=== PATIENT | female | born 1955 | race Caucasian/White ===

== ENCOUNTER → 2016-05-21 | Outpatient (CLI) | payer OTHER ==
[~2016-05-21] MED LIST: OLME1TAB PO
--- NOTE | 2016-05-21 15:41 | RAD ---
Right knee radiographs History: Right knee pain for one month. Comparison: None. Findings: AP, lateral, and oblique views of the right knee. No acute fracture or dislocation is identified. No joint effusion is seen. Minimal tricompartment degeneration is present. Impression: 1. No acute osseous abnormality identified. 2. Minimal degeneration.
== END | disposition home or self-care (01) ==
LOC: DXRADRC 15:27
PROVIDERS: ATTEND Physician Assistant
DX: M25.561 Pain in right knee (principal)
CPT/HCPCS: 73562

== ENCOUNTER 2017-02-13 19:34 | Emergency (ER) | payer OTHER ==
[~2017-02-13] VITALS: Ht 160 cm; Wt 90.3 kg
[~2017-02-13 19:34] MED LIST changes: -OLME1TAB PO; +OLME1TAB21 PO
[2017-02-13] MEDS ORDERED: DIPHTH,PERTUSS(ACELL),TET TOX 0.5 ML DISP.SYRIN. VAX IM ONE (20:00)
--- NOTE | 2017-02-13 20:18 | PHYS DOC ---
Past History Past Medical History: Cancer, Diabetes, High Cholesterol, Hypertension Additional Past Medical Histor: thyroid nodule Past Surgical History: Cancer Surgery Additional Past Surgical Histo: right radical mastectomy with breast implant. Smoking: Non-smoker Alcohol Use: None Drug Use: None Adult General Chief Complaint Chief Complaint: FOOT INJURY PAIN HPI HPI 61-year-old female presenting to the emergency department after injuring her right foot. She reports that a jar fell to the ground and she accidentally stepped on a small shard of glass on the heel of her foot after trying to preforms laminator a plantar flexed position she had pain in the distal metatarsals. She reports having pain in the distal metatarsals over the past week without any known injury. She states that her plantar flexion that occurred today made the pain worse. Her tetanus was more than 10 years ago. She denies any other injuries. Her reports that he was able to remove the shard of glass that ended up in the heel of her foot. Review of systems is negative for knee pain or hip pain. She denies chest pain or abdominal pain. All other review of systems is negative unless otherwise noted in history of present illness. ED course: 61-year-old female presenting to the emergency department after accidentally stepping on a small piece of glass shard on her heel and injuring her metatarsals. On examination the patient's right foot, it is warm and well perfused with palpable pulse. Normal in color. She second cap refill. Normal sensation and motor function of the foot. She has a 2 mm linear superficial cut on her heel from the glass shard that does not need to be repaired. No evidence of foreign body in good lighting with good hemostasis. She has mild swelling over the distal metatarsals with minimal ecchymosis. She has tenderness to palpation along the distal metatarsals. Pain is more on the dorsal aspect of the metatarsals. Ankle is nontender with normal range of motion. No other identifiable injuries on secondary survey. X-rays were obtained. Tetanus updated. The wound was cleansed. I do not believe the patient would benefit from prophylactic antibiotic therapy. I recommended good wound care, cleaning 2x per day. Review of Systems Review of Systems SEE ABOVE. Allergies Allergies Allergies Coded Allergies Type Severity Reaction Last Updated Verified No Known Drug Allergies 09/02/14 No Physical Exam Physical Exam SEE ABOVE Constitutional: Well developed, well nourished, no acute distress, non-toxic appearance. [] HENT: Normocephalic, atraumatic, bilateral external ears normal, oropharynx moist, no oral exudates, nose normal. [] Eyes: PERRLA, EOMI, conjunctiva normal, no discharge. [] Neck: Normal range of motion, no tenderness, supple, no stridor. [] Cardiovascular:Heart rate regular rhythm, no murmur [] Lungs & Thorax: Bilateral breath sounds clear to auscultation [] Abdomen: Bowel sounds normal, soft, no tenderness, no masses, no pulsatile masses. [] Skin: Warm, dry, no erythema, no rash. [] Back: No tenderness, no CVA tenderness. [] Extremities: see above Neurologic: Alert and oriented X 3, normal motor function, normal sensory function, no focal deficits noted. [] Psychologic: Affect normal, judgement normal, mood normal. [] EKG EKG [] Radiology/Procedures Radiology/Procedures []X-ray reviewed by myself shows no obvious fracture or dislocation. Course & Med Decision Making Course & Med Decision Making Pertinent Labs and Imaging studies reviewed. (See chart for details) [] Dragon Disclaimer Dragon Disclaimer This electronic medical record was generated, in whole or in part, using a voice recognition dictation system. Departure Departure: Impression: Primary Impression: Right foot injury Disposition: 01 HOME, SELF-CARE Condition: STABLE Referrals: ANDREW DOVER (PCP) Patient Instructions: Foot Sprain-Brief, RICE - Routine Care for Injuries Additional Instructions: Thank you for allowing us to participate in your care today. Followup with your primary care physician in 3 days if your symptoms do not improve. If your symptoms continue for more than 5-6 days I recommend being reexamined by her primary care physician and hospital further imaging. Call your Primary Doctor tomorrow and inform them of your visit today. If you do not have a primary care provider you can ask for a list of our primary care providers. Return to the emergency department you have any new or concerning findings. This should be evaluated by the primary care physician and any necessary consulting services for continued management within a few days after discharge. Return to emergency room if you have any new or concerning symptoms including but not limited to fever, chills, nausea, vomiting, intractable pain, any new rashes, chest pain, shortness of air, uncontrolled bleeding, difficulty breathing, and/or vision loss. MERLE HAGAN MD Feb 13, 2017 20:18
--- NOTE | 2017-02-13 20:56 | RAD ---
Right foot x-rays 3 views HISTORY: Laceration stepping on glass of the right heel and dorsal foot injury, pain and swelling FINDINGS: Dorsal foot soft tissue swelling. Dystrophic type calcifications at the anterior distal calf and at the dorsal great toe. There is no radiopaque foreign body at the heel evident. Mild dystrophic calcifications of the Achilles tendon insertion at the calcaneus. Mild chronic ossicle at the dorsal talonavicular joint. No fracture or dislocation evident. IMPRESSION: No acute osseous injury. Dorsal foot soft tissue swelling. Electronically signed by: Kulwinder Rhodes MD (02/13/2017 8:53 PM) [facility]
[2017-02-13 21:12] VITALS: BP 142/80
== END 2017-02-13 21:15 | disposition home or self-care (01) ==
LOC: ER 19:34
DX: S99.921A Unspecified injury of right foot, initial encounter (principal); I10 Essential (primary) hypertension; E78.00 Pure hypercholesterolemia, unspecified; E11.9 Type 2 diabetes mellitus without complications; W22.8XXA Striking against or struck by other objects, initial encounter; Y93.89 Activity, other specified; Y99.8 Other external cause status; Y92.89 Other specified places as the place of occurrence of the external cause
CPT/HCPCS: 73630; 90471; 90715; 99284-25

== ENCOUNTER → 2017-02-18 | Outpatient (CLI) | payer OTHER ==
[2017-02-13 21:12] VITALS: BP 142/80
--- NOTE | 2017-02-18 10:03 | RAD ---
INDICATION: LEFT FOOT PAIN COMPARISON: None. IMPRESSION: Left foot: 3 views obtained. Cortical step-off at the proximal phalanx of the fifth digit. Would correlate with point tenderness since this could be seen with a nondisplaced fracture. Degenerative changes the foot. Plantar calcaneal spur.
== END | disposition home or self-care (01) ==
LOC: PMG 09:36
PROVIDERS: ATTEND Physician Assistant
DX: M19.072 Primary osteoarthritis, left ankle and foot (principal); M77.32 Calcaneal spur, left foot
CPT/HCPCS: 73630

== ENCOUNTER 2019-09-26 02:02 | Emergency (ER) | payer OTHER ==
[~2019-09-26] VITALS: Ht 160 cm; Wt 86.4 kg
[2019-09-26] MEDS ORDERED: methylPREDNISolone SOD SUCC PF 125 MG/2 ML VIAL. IV ONE (02:15)
[2019-09-26] MEDS ORDERED: ONDANSETRON PF 4 MG/2 ML VIAL. IVP ONE (02:15)
[2019-09-26] MEDS ORDERED: diphenhydrAMINE 50 MG/ML VIAL IVP ONE (02:15)
[2019-09-26] MEDS ORDERED: FAMOTIDINE 20 MG/2 ML VIAL IVP ONE ×2 (02:15→03:00)
[2019-09-26] MEDS ORDERED: METOCLOPRAMIDE HCL 10 MG/2 ML VIAL. IVP ONE (03:00)
[2019-09-26] MEDS ORDERED: IV NORMAL SALINE 1,000ML 1,000 ML IV ONE (03:00)
--- NOTE | 2019-09-26 03:26 | PHYS DOC ---
Past History Past Medical History: Cancer, Diabetes, High Cholesterol, Hypertension, Hypothyroid Additional Past Medical Histor: thyroid nodule (ZHANNA BOYLE DO) Past Surgical History: Cancer Surgery Additional Past Surgical Histo: right radical mastectomy with breast implant. (ZHANNA BOYLE DO) Smoking: Non-smoker Alcohol Use: None Drug Use: None (ZHANNA BOYLE DO) General Adult EDM: Chief Complaint: NAUSEA/VOMITING/DIARRHEA HPI: HPI: 63-year-old female past medical history significant for hypothyroidism, hypertension, hyperlipidemia and prediabetes on metformin, presents to the ED with complaints of " I think I am constipated." Last bowel movement was 3 days ago. Reports multiple episodes of nausea and nonbloody nonbilious vomiting with severe diffuse, nonlocalized abdominal cramps. PSH right mastectomy, no abdominal surgeries. ROS: Denies associated fever, chills, sore throat, cough, chest pain, dyspnea, hematochezia, melena, hematemesis, hemoptysis, leg swelling, chest pain or pressure, dyspnea, hemoptysis, diaphoresis, headache, neck stiffness, dysuria, hematuria, diarrhea or rash. (ZHANNA BOYLE DO) Current Medications: Current Meds: Current Medications Medications (Trade) Dose Ordered Sig/Maria Start Time Stop Time Status Last Admin Dose Admin Diphenhydramine HCl (Benadryl) 50 mg 1X ONCE 09/26/19 02:15 09/26/19 02:13 DC Famotidine (Pepcid Vial) 20 mg 1X ONCE 09/26/19 03:00 09/26/19 03:01 UNV 09/26/19 03:21 20 MG Methylprednisolone Sodium Succinate (SOLU-Medrol 125MG VIAL) 125 mg 1X ONCE 09/26/19 02:15 09/26/19 02:23 DC Metoclopramide HCl (Reglan Vial) 10 mg 1X ONCE 09/26/19 03:00 09/26/19 03:01 UNV 09/26/19 03:21 10 MG Ondansetron HCl (Zofran) 8 mg 1X ONCE 09/26/19 02:15 09/26/19 02:23 DC Sodium Chloride 1,000 ml @ 1,000 mls/hr 1X ONCE 09/26/19 03:00 09/26/19 03:59 UNV 09/26/19 03:21 1,000 MLS/HR (ZHANNA BOYLE DO) Allergies: Allergies: Allergies Coded Allergies Type Severity Reaction Last Updated Verified No Known Drug Allergies 09/02/14 No (ZHANNA BOYLE DO) Physical Exam: PE: Constitutional: Well developed, uncomfortable and in pain HENT: Normocephalic, atraumatic, bilateral external ears normal, oropharynx moist, no oral exudates, nose normal. [] Eyes: EOMI, conjunctiva normal, no discharge. [] Neck: Normal range of motion, no tenderness, supple, no stridor. [] Cardiovascular:Heart rate regular rhythm, no murmur [] Lungs & Thorax: Bilateral breath sounds clear to auscultation [] Abdomen: Bowel sounds-high pitched/minimal, distended/diffuse pain Skin: Warm, dry, no erythema, no rash. [] Back: No tenderness, no CVA tenderness. [] Extremities: No tenderness, no cyanosis, no clubbing, ROM intact, no edema. [] Neurologic: Alert and oriented X 3, normal motor function, normal sensory function, no focal deficits noted. [] Psychologic: Affect normal, judgement normal, mood normal. [] (VERONAZHANNA DO) Current Patient Data: Vital Signs: Vital Signs Date Time Temp Pulse Resp B/P (MAP) Pulse Ox O2 Delivery O2 Flow Rate FiO2 09/26/19 02:29 98.2 88 16 145/89 (107) 98 Room Air (VERONAZHANNA DO) EKG: EKG: [] (ZHANNA BOYLE DO) Radiology/Procedures: Radiology/Procedures: [] (ZHANNA BOYLE DO) Course & Med Decision Making: Course & Med Decision Making Pertinent Labs and Imaging studies reviewed. (See chart for details) 63-year-old female with concern for bowel obstruction, CT pending. Pt w/no tachycardia, no leukocytosis. Labs with Cr 1.2, no lactic acidosis. Due to shift change patient was signed out to Dr. Luna. (VERONAZHANNA DO) Course & Med Decision Making Signout received from Dr. Boyle. In brief patient is a 63-year-old female presents with a chief complaint of abdominal discomfort with nausea and lack of flatus. C previous provider's note for further details. CT imaging is concerning for multiple findings. Of note patient does have findings consistent with large bowel obstruction potentially due to malignant neoplasm. Furthermore concern for potential fistula into the dome of the urinary bladder. Upon my assessment the patient is overall resting comfortably. She shows no signs of peritonitis. She shows no active vomiting in the exam room. Vital signs are stable. Did discuss the case with the [facility] as the patient is refusing transfer to [facility]. They have accepted the patient. Patient was monitored in our emergency department for several hours prior to transport. She showed no signs of clinical decompensation. Patient has been accepted by [facility]. Stable upon transfer. (SADA LUNA DO) Dragon Disclaimer: Dragdanelle Disclaimer: This electronic medical record was generated, in whole or in part, using a voice recognition dictation system. (ZHANNA BOYLE DO) Departure Departure: Impression: Primary Impression: Large bowel obstruction Disposition: XFER SHT-TRM HOSP Condition: STABLE Referrals: ANDREW DOVER (PCP) Justification of Admission: Justification of Admission: Justification of Admission Dx: Yes Comments: large bowel obstruction 2/2 mass (SADA LUNA DO) ZHANNA BOYLE DO Sep 26, 2019 03:25 SADA LUNA DO Sep 26, 2019 13:48
[2019-09-26 03:47] LABS: BASO # 0.1 x10^3/uL (0.0-0.2); BASO % 1 % (0-3); EOS % 0 % (0-3); HEMATOCRIT 39.1 % (36.0-47.0); LYMPH # 1.2 x10^3/uL (1.0-4.8); LYMPH % 16 % (24-48); MEAN CORPUSCULAR HEMOGLOBIN 29 pg (25-35); MEAN CORPUSCULAR HGB CONC 33 g/dL (31-37); MEAN CORPUSCULAR VOLUME 86 fL (79-100); MONO # 0.6 x10^3/uL (0.0-1.1); MONO % 7 % (0-9); NEUT # 5.9 x10^3uL (1.8-7.7); NEUT % 75 % (31-73); PLATELET COUNT 226 x10^3/uL (140-400); RED BLOOD COUNT 4.54 x10^6/uL (3.50-5.40); RED CELL DISTRIBUTION WIDTH 14.5 % (11.5-14.5); WHITE BLOOD COUNT 7.8 x10^3/uL (4.0-11.0)
[2019-09-26 03:49] LABS: CREATININE 1.2 mg/dL (0.6-1.0); GFR 45.7; POTASSIUM 3.5 mmol/L (3.5-5.1)
--- NOTE | 2019-09-26 03:49 | RAD ---
AP chest x-ray HISTORY: Nausea and vomiting. FINDINGS: Comparison is made to chest x-ray September 02, 2014. Cardiomegaly stable. Mediastinal silhouette is unremarkable. No pneumothorax, pulmonary opacities or pleural effusions. Bones are unremarkable. IMPRESSION: No acute process. Cardiomegaly stable. Electronically signed by: Kulwinder Rhodes MD (09/26/2019 3:46 AM) [facility]
[2019-09-26 03:55] LABS: ALBUMIN 3.3 g/dL (3.4-5.0); ALBUMIN/GLOBULIN RATIO 0.8 (1.0-1.7); TOTAL PROTEIN 7.6 g/dL (6.4-8.2)
[2019-09-26] MEDS ORDERED: CONTRAST GIVEN. MC PRN (04:00)
[2019-09-26] MEDS ORDERED: IOHEXOL 240 MG/ML 50ML VIAL. PO ONE (04:00)
[2019-09-26] MEDS ORDERED: IOHEXOL 300 MG/ML 75 ML VIAL. IV ONE (04:00)
--- NOTE | 2019-09-26 06:15 | RAD ---
CT abdomen and pelvis with contrast PQRS statement: CT scans at this facility use dose reduction including either automated exposure control, iterative reconstructions, and /or weight based radiation dosing via mA and kV modification when appropriate to reduce radiation dose to as low as reasonably achievable. Contrast: 75 mL Omnipaque 300 intravenous contrast HISTORY: Nausea, vomiting and abdominal pain and constipation. Abdomen findings: 3 mm solid nodule left lower lobe image 17. Small gallstone. There is mild right renal pelviectasis diameter 1 cm there appears be mild thickened urothelial enhancement as well as distention and enhancement of the ureter. There is a focal subcentimeter hypodensity of the right renal cortex most likely small cysts. Left kidney, adrenal glands, pancreas, spleen and liver are unremarkable. Appendix is negative. There is obstruction of the large bowel with liquid stool and air-fluid levels leading up to a malignant stricture of the sigmoid colon which has a length of at least 10 cm and probable extension to the muscular propria into the surrounding pericolonic fat, there is a linear density extending to the dome of the bladder wall is thickened no bubbles of air within the bladder along with a ill-defined 3 cm round hypodensity raising the possibility of a colovesical fistula, and metastatic tumor implant of the bladder wall or abscess. No abdominal fluid or adenopathy. Lumbar disc disease. Pelvis findings: Sigmoid diverticuli distal of the length stricture, rectum unremarkable. Upper bladder wall 3 cm round density and bubbles of air in the bladder associated with a colovesical fistula. 2 cm left posterior uterine fundus fibroid. Ovaries and bones are unremarkable. IMPRESSION: 1. 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 2. 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 There is a 3 cm round hypodensity of the dome of the bladder associated with the fistula which could be abscess or metastatic tumor implant. 3. Right renal mild pelviectasis and hydroureter with thickened urothelial enhancement may represent ascending pyelitis. 4. 3 mm solid pulmonary nodule of the left lower lobe. Consider further assessment with outpatient diagnostic CT chest imaging. Electronically signed by: Kulwinder Rhodes MD (09/26/2019 6:12 AM) [facility]
[2019-09-26] MEDS ORDERED: ONDANSETRON PF 4 MG/2 ML VIAL. IVP PRN (09:15)
[2019-09-26] MEDS ORDERED: MORPHINE SULFATE 4 MG/ML DISP.SYRIN. IV PRN (09:15)
[2019-09-26 13:55] VITALS: BP 133/73
== END 2019-09-26 15:08 | disposition short-term general hospital (02) ==
LOC: ER 02:02
DX: K56.609 Unspecified intestinal obstruction, unspecified as to partial versus complete obstruction (principal); E03.9 Hypothyroidism, unspecified; I10 Essential (primary) hypertension; E78.5 Hyperlipidemia, unspecified; E11.9 Type 2 diabetes mellitus without complications; E78.00 Pure hypercholesterolemia, unspecified
CPT/HCPCS: 36415; 71045; 74177; 80053; 82550; 83605; 83690; 84484; 85025; 96361; 96374; 96375; 99285; J2270; J2405; J2765; J3490; J7030; Q9966; Q9967

== ENCOUNTER 2020-03-19 08:13 | Emergency (ER) | payer OTHER ==
[~2020-03-19] VITALS: Ht 160 cm; Wt 83.4 kg
[2020-03-19] MEDS ORDERED: ONDANSETRON PF 4 MG/2 ML VIAL. IVP ONE (08:45)
[2020-03-19] MEDS ORDERED: IV NORMAL SALINE 1,000ML 1,000 ML IV ONE (08:45)
[2020-03-19] MEDS ORDERED: IOHEXOL 300 MG/ML 75 ML VIAL. IV ONE (09:15)
[2020-03-19] MEDS ORDERED: IOHEXOL 240 MG/ML 50ML VIAL. PO ONE (09:15)
--- NOTE | 2020-03-19 09:16 | EKG ---
[address] [address] Test Date: 2020-03-19 Test Time: 08:34:40 Pat Name: RAMONE GREGORY Department: Room: Gender: F Composition Instructor: NAZARIO : 1955 Requested By: RAFAEL CALL Order Number: [id number] Reading MD: Measurements Intervals [place] Rate: 93 P: 31 RI: 170 QRS: -19 QRSD: 82 T: 98 QT: 374 QTc: 468 Interpretive Statements SINUS RHYTHM ATRIAL PREMATURE COMPLEX(ES) LEFTWARD AXIS LVH WITH REPOLARIZATION ABNORMALITY QRS(T) CONTOUR ABNORMALITY CONSIDER ANTEROSEPTAL MYOCARDIAL DAMAGE ABNORMAL ECG RI6.02 No previous ECG available for comparison
--- NOTE | 2020-03-19 09:19 | PHYS DOC ---
Past History Past Medical History: Cancer, Diabetes, High Cholesterol, Hypertension, Hypothyroid Additional Past Medical Histor: thyroid nodule Past Surgical History: Cancer Surgery Additional Past Surgical Histo: right radical mastectomy with breast implant. Smoking: Non-smoker Alcohol Use: None Drug Use: None Adult General Chief Complaint Chief Complaint: POST-OP PROBLEM HPI HPI Patient is a 64-year-old female who presents to the emergency room complaining of decreased bowel movements, nausea, vomiting, severe fatigue. Patient states that she had a reversal of a ostomy done 1 week ago at . She states that she was having good bowel movements until Friday. She believes that she just was not drinking enough water and she has severe dehydration that is causing her s ymptoms. She states that she has some upper abdominal pain that feels like aching. She states that it is due to vomiting. She does not feel like she is able to keep anything down. She did contact her surgeon who told her to go to the emergency room. She denies any kind of fever. She states she does not have any other significant symptoms. Review of Systems Review of Systems General: Denies fever, chills, sweats, fatigue Eyes: Denies drainage, blurred vision, eye redness HENT: Denies rhinorrhea, sore throat, earache Respiratory: Denies cough, shortness of breath, wheezing Cardiac: Denies edema, palpitations, chest pain GI: Reports abdominal pain, Nausea, vomiting MSK: Denies back pain, neck pain Skin: Denies rash, jaundice Neuro: Denies headache, dizziness Psychiatric: Denies SI/HI Current Medications Current Medications Current Medications Medications (Trade) Dose Ordered Sig/Maria Start Time Stop Time Status Last Admin Dose Admin Iohexol (Omnipaque 240 Mg/ml) 30 ml 1X ONCE 03/19/20 09:15 03/19/20 09:16 Iohexol (Omnipaque 300 Mg/ml) 75 ml 1X ONCE 03/19/20 09:15 03/19/20 09:16 Ondansetron HCl (Zofran) 4 mg 1X ONCE 03/19/20 08:45 03/19/20 08:53 DC 03/19/20 08:55 4 MG Sodium Chloride 1,000 ml @ 1,000 mls/hr 1X ONCE 03/19/20 08:45 03/19/20 09:44 03/19/20 08:54 1,000 MLS/HR Allergies Allergies Allergies Coded Allergies Type Severity Reaction Last Updated Verified No Known Drug Allergies 09/02/14 No Physical Exam Physical Exam General: Awake, sleepy, NAD. Well Nourished, well hydrated. Cooperative HEENT: Atraumatic, EOMI, PERRL, airway patent, moist oral mucosa Neck: Supple, trachea midline Respiratory: CTA bilaterally, normal effort, no wheezing/crackles CV: RRR, no murmur, cap refill <2 GI: Soft, no masses, minimal epigastric tenderness, surgical midline wound is clean, dry, intact. Surgical site of prior ostomy is clean, dry, intact. No signs of drainage or erythema MSK: No obvious deformities Skin: Warm, dry Neuro: A&O x3, speech NL, sensory and motor grossly intact, no focal deficits Psych: Normal affect, normal mood, not suicidal or homicidal Current Patient Data Vital Signs Vital Signs Date Time Temp Pulse Resp B/P (MAP) Pulse Ox O2 Delivery O2 Flow Rate FiO2 03/19/20 08:13 97.9 92 22 157/86 (109) 95 Room Air EKG EKG [] Radiology/Procedures Radiology/Procedures [] Heart Score Risk Factors: Risk Factors: DM, Current or recent (<one month) smoker, HTN, HLP, family history of CAD, obesity. Risk Scores: Risk Factors: DM, Current or recent (<one month) smoker, HTN, HLP, family history of CAD, obesity. Course & Med Decision Making Course & Med Decision Making Pertinent Labs and Imaging studies reviewed. (See chart for details) Patient is a 64-year-old female who presents to the emergency room complaining o f vomiting and decreased bowel movements. She is 1 week postop from an ostomy reversal. Differential diagnosis includes ileus, bowel obstruction, infection, gastroenteritis, constipation. Patient was given fluids and nausea medication. Abdominal labs and a CT abdomen pelvis was ordered. CT shows some fluid-filled stomach and proximal small bowel. Radiology is concerned about a possible small bowel obstruction. Patient also has a 1.9 cm stone. LFTs were not able to be obtained here due to lab equipment issues. I discussed the case with the surgeon on-call who stated that we needed to call the transfer center. Call was made to the transfer center and they will accept the patient. Plan discussed with patient and all questions were answered. Dragon Disclaimer Dragon Disclaimer This electronic medical record was generated, in whole or in part, using a voice recognition dictation system. Departure Departure: Impression: Primary Impression: Small bowel obstruction Additional Impressions: Dehydration Biliary stone Disposition: 02 DC/TRF OTHER SHORT TERM HOS Condition: IMPROVED Referrals: ANDREW DOVER (PCP) Problem Qualifiers RAFAEL CALL MD Mar 19, 2020 09:19
[2020-03-19 09:43] LABS: BASO # 0.1 x10^3/uL (0.0-0.2); BASO % 0 % (0-3); EOS % 0 % (0-3); HEMATOCRIT 41.5 % (36.0-47.0); HEMOGLOBIN 13.4 g/dL (12.0-15.5); LYMPH # 0.5 x10^3/uL (1.0-4.8); LYMPH % 3 % (24-48); MEAN CORPUSCULAR HEMOGLOBIN 27 pg (25-35); MEAN CORPUSCULAR HGB CONC 32 g/dL (31-37); MEAN CORPUSCULAR VOLUME 84 fL (79-100); MONO # 0.9 x10^3/uL (0.0-1.1); MONO % 5 % (0-9); NEUT # 15.9 x10^3uL (1.8-7.7); NEUT % 92 % (31-73); PLATELET COUNT 362 x10^3/uL (140-400); RED BLOOD COUNT 4.92 x10^6/uL (3.50-5.40); RED CELL DISTRIBUTION WIDTH 15.5 % (11.5-14.5); WHITE BLOOD COUNT 17.4 x10^3/uL (4.0-11.0)
[2020-03-19 10:06] LABS: HEMOGLOBIN ISTAT 15.6 gm/dL; POTASSIUM ISTAT 3.7 mmol/L (3.5-5.0)
--- NOTE | 2020-03-19 12:21 | RAD ---
CT abdomen and pelvis with contrast: Reason for examination: Recent surgery with abdominal pain and vomiting. Decreased bowel sounds. Comparison is made to previous study dated 09/26/2019. Helical images were obtained through the abdomen and pelvis with intravenous administration of 65 cc Omnipaque 300. 42 ML of Omnipaque 240 oral contrast was given. Reconstruction was performed in sagitt al and coronal planes. Exposure: One or more of the following individualized dose reduction techniques were utilized for thi s examination: 1. Automated exposure control 2. Adjustment of the mA and/or kV according to patient size 3. Use of iterative reconstruction technique. There is some density consistent with atelectasis in the left lingula. The heart size is borderline e nlarged with no pericardial effusion. There has been previous right mastectomy with implant placement . No abnormality seen at the liver, spleen pancreas or adrenal glands. There continues to be a 1.9 cm g allstone present which now appears to be at the gallbladder neck. The abdominal aorta shows some sahil riosclerotic vascular calcification but no aneurysmal dilatation or dissection is seen. No abnormalit y seen at the inferior vena cava. The colon shows evidence of previous surgery in the sigmoid colon w ith anastomosis. There is some diverticulosis in the remaining sigmoid colon and descending colon. No colitis or obstruction is seen. No abnormality seen at the appendix. The stomach is distended with t he oral contrast. No gastric obstruction is evident. No abnormality seen at the duodenum. The proxima l small intestinal tract shows some dilatation with fluid-filled intestine without wall thickening ex tending to the inferior midline. Abnormality at the transition site is not identified but could refle ct adhesions or inflammation. The distal small intestinal tract is not dilated. There does appear to be some mild inflammatory change within the central mesentery which may be related to recent surgery. The kidneys show a small cyst at the midpole posteriorly in the right kidney measuring 7 mm in size. No renal calculi, hydronephrosis or obstructive uropathy is seen. No abnormality seen at the bladder. There is some calcification which appears to be in the left side the uterus and may represent a degenerating fibroid. There is some increased density within the pelvi c mesentery which is probably related to recent surgery. There is a small amount of fluid present in the pelvis as well as a small amount of fluid under the anterior abdominal wall at the level of the u mbilicus. Previous ostomy site is seen in the left anterior abdominal wall with some edema present in a small 1.5 cm focus of air fluid level is seen just beneath the skin at the previous ostomy site. N o acute bony abnormalities are seen. There is some degenerative change again seen at the L5-S1 disc l evel. No acute bony abnormalities are seen. IMPRESSION: Atelectasis in the left lingula. Stable cardiomegaly. 1.9 cm gallstone which now appears to be at the gallbladder neck. Fluid-filled stomach and dilated proximal small intestine to the midline in the pelvis without a foca l abnormality seen at the transition site but this may reflect adhesions or inflammation. Postop changes with anastomosis in the distal sigmoid colon. Previous ostomy site in the left anterior abdominal wall with a small 1.5 cm air-fluid level seen jus t beneath the skin. Increased density within the mesentery of the abdomen and pelvis probably related to recent surgery. Free fluid in the pelvis and under the anterior abdominal wall at the level of the umbilicus probably related to recent surgery. Electronically signed by: Jada Turner MD (03/19/2020 12:07 PM) [facility]
[2020-03-19 13:51] LABS: ALBUMIN 3.9 g/dL (3.4-5.0); ALBUMIN/GLOBULIN RATIO 0.8 (1.0-1.7); CREATININE 1.5 mg/dL (0.6-1.0); GFR 35.2; POTASSIUM 3.8 mmol/L (3.5-5.1); TOTAL BILIRUBIN 0.5 mg/dL (0.2-1.0); TOTAL PROTEIN 9.1 g/dL (6.4-8.2)
[2020-03-19 14:44] VITALS: BP 138/76
[2020-03-19 20:31] LABS: % BANDS 4 % (0-9); % LYMPHS 3 % (24-48); % MONOS 6 % (0-10); % SEGS 87 % (35-66); PLT ESTIMATE ADEQUATE (ADEQUATE)
== END 2020-03-19 15:06 | disposition short-term general hospital (02) ==
LOC: ER 08:13
DX: K56.609 Unspecified intestinal obstruction, unspecified as to partial versus complete obstruction (principal); E86.0 Dehydration; R11.2 Nausea with vomiting, unspecified; R53.83 Other fatigue; E11.9 Type 2 diabetes mellitus without complications; E78.00 Pure hypercholesterolemia, unspecified; I10 Essential (primary) hypertension; E03.9 Hypothyroidism, unspecified; Z98.890 Other specified postprocedural states; Z85.9 Personal history of malignant neoplasm, unspecified
CPT/HCPCS: 36415; 74177; 80047; 80053; 85007; 85025; 93005; 96361; 96374; 99285; J2405; J7030; Q9967

== ENCOUNTER → 2020-09-06 | Outpatient (CLI) | payer OTHER ==
--- NOTE | 2020-09-06 19:12 | RAD ---
XR EXAM OF ANKLE_LEFT 3V History: Fall today, left ankle pain. Comparison: None. Technique: 3 views of left ankle. Findings: Minimally displaced oblique fracture left distal fibula extending to the level of the tibial plafond. The ankle mortise is symmetric. The talar dome is intact. Mild degenerative changes at the medial ma lleolus. Prominent Achilles insertion and plantar calcaneal enthesophytes. Lateral ankle soft tissue swelling. Impression: 1. Oblique fracture of the left distal fibula extending to the level of tibial plafond. Ankle mortis e appears symmetric on nonweightbearing view. Electronically signed by: Vernon Estrella MD (09/06/2020 7:10 PM) [facility]
== END ==
LOC: RAD 18:41
PROVIDERS: ATTEND Family Medicine
DX: S82.432A Displaced oblique fracture of shaft of left fibula, initial encounter for closed fracture (principal); X58.XXXA Exposure to other specified factors, initial encounter; Y93.89 Activity, other specified; Y92.89 Other specified places as the place of occurrence of the external cause; Y99.8 Other external cause status
CPT/HCPCS: 73610

== ENCOUNTER → 2020-09-11 | Outpatient (CLI) | payer OTHER ==
--- NOTE | 2020-09-12 09:32 | RAD ---
XR EXAM OF ANKLE_LEFT 3V History: Reason: LEFT ANKLE PAIN / Spl. Instructions: / History: Technique: 3 views left ankle. Comparison: September 06, 2020 Findings: Interval casting left ankle degrades evaluation of fine bony detail. Healing left distal fibular frac ture difficult to evaluate. No dislocation. No definite new fracture. Impression: 1. Degraded evaluation due to overlying cast. 2. Healing left distal fibular fracture, unchanged alignment. Electronically signed by: Russell Pereira DO (09/12/2020 9:30 AM) [id number]
== END ==
LOC: RAD 15:24
PROVIDERS: ATTEND Physician Assistant
DX: S82.832D Other fracture of upper and lower end of left fibula, subsequent encounter for closed fracture with routine healing (principal); X58.XXXD Exposure to other specified factors, subsequent encounter
CPT/HCPCS: 73610

== ENCOUNTER → 2020-10-09 | Outpatient (CLI) | payer OTHER ==
--- NOTE | 2020-10-09 16:27 | RAD ---
EXAM: Left ankle, 3 views. HISTORY: Fracture follow-up. COMPARISON: 09/11/2020. FINDINGS: 3 views of the left ankle are obtained. There has been minimal interval callus formation mahan rrounding a mildly displaced distal fibular metaphyseal fracture. There is a chronic appearing avulsi on fracture fragment inferior to the medial malleolus. The ankle mortise intact. There is diffuse sof t tissue swelling. There is no osteochondral lesion. There is enthesopathy at the place insertion. Th ere is a small plantar spur. There is a chronic corticated ossicle along the anterior talonavicular j oint. IMPRESSION: Minimal interval healing of a distal fibular fracture. Electronically signed by: Jeimy Bailey MD (10/09/2020 4:24 PM) [id number]
== END ==
LOC: RAD 15:40
PROVIDERS: ATTEND Physician Assistant
DX: S82.832A Other fracture of upper and lower end of left fibula, initial encounter for closed fracture (principal); M77.32 Calcaneal spur, left foot; X58.XXXA Exposure to other specified factors, initial encounter; Y93.89 Activity, other specified; Y92.89 Other specified places as the place of occurrence of the external cause; Y99.8 Other external cause status
CPT/HCPCS: 73610

== ENCOUNTER → 2020-11-06 | Outpatient (CLI) | payer OTHER ==
--- NOTE | 2020-11-07 14:02 | RAD ---
Study: XR EXAM OF ANKLE_LEFT 3V Indication: Fracture follow-up. Comparison: Most recently on 10/09/2020 Findings: Ongoing healing of a Lemons type B fibula fracture with persistent visualization of the fracture cleft but increasing callus. No change in fracture alignment. Redemonstration of ossific fragments at the dorsum of the talus/talonavicular joint and at the tip of the medial malleolus. No newly seen fractur e or progressive arthrosis. Impression: Ongoing healing of a Lemons type B distal fibula fracture with increasing callus. No newly identified fracture or change in alignment. Electronically signed by: MARLEN JOHNSON MD (11/07/2020 9:58 AM) [id number]
== END ==
LOC: RAD 15:40
PROVIDERS: ATTEND Physician Assistant
DX: S82.65XD Nondisplaced fracture of lateral malleolus of left fibula, subsequent encounter for closed fracture with routine healing (principal); X58.XXXD Exposure to other specified factors, subsequent encounter
CPT/HCPCS: 73610